=== PATIENT | female | born 1985 | race Caucasian/White ===

== ENCOUNTER 2017-07-04 14:51 | Emergency (ER) | payer OTHER ==
[2017-07-04 15:13] VITALS: BP 121/66; PULSE 76; RESP 16; TEMP 98.1; O2SAT 98
--- NOTE | 2017-07-04 16:12 | EDPHY ---
H & P Time Seen by Provider: 07/04/17 15:47 HPI/ROS: CHIEF COMPLAINT: Right foot injury HISTORY OF PRESENT ILLNESS: 31-year-old female presents to the emergency department with injury to her right foot. The patient was walking with socks on last night and somehow twisted her right foot. She complains of isolated pain in the foot. Denies pain in her ankle or any other injury. ROS: Denies numbness or tingling in her toes, pain right ankle or calf. Past Medical/Surgical History: Negative Social History: Single and lives in [place] Smoking Status: Never smoked Physical Exam: Bee on examination, the patient has obvious swelling and ecchymosis to the dorsal aspect of her right foot. Tenderness with palpation along the 5th metatarsal. The no redness. No abrasions or puncture wounds. No signs of cellulitis. No rotational deformities noted. The other toes do not appear injured. Nontender to palpate the right ankle. Her gait is not tested due to pain. Strong dorsalis pedis pulse on the dorsal aspect of her right foot. Constitutional: Initial Vital Signs Temperature (C) 36.7 C 07/04/17 15:05 Heart Rate 76 07/04/17 15:05 Respiratory Rate 16 07/04/17 15:05 Blood Pressure 121/66 H 07/04/17 15:05 O2 Sat (%) 98 07/04/17 15:05 O2 Delivery Mode Room Air Allergies/Adverse Reactions: No Known Allergies Allergy (Unverified 07/04/17 15:10) Home Medications: Medication Instructions Recorded NK [No Known Home Meds] 07/04/17 MDM/Departure - MDM Imaging: I viewed and interpreted images myself Procedures: The patient was placed in a Hernandez boot, examined post application in good placement with normal [employer]. She was also given crutches. ED Course/Re-evaluation: 31-year-old female presents with right foot injury. X-rays reveal right 5th metatarsal fracture. Patient was placed in a Hernandez boot and given orthopedic referral. - Depart Disposition: Home, Routine, Self-Care Clinical Impression: Nondisplaced fracture of fifth right metatarsal bone Qualifiers: Encounter type: initial encounter Fracture type: closed Qualified Code(s): S92.354A - Nondisplaced fracture of fifth metatarsal bone, right foot, initial encounter for closed fracture Condition: Good Instructions: Foot Fracture in Adults (ED) Additional Instructions: Ibuprofen 600 mg every 8 hr as needed for pain. Hernandez boot for comfort and support. Use crutches, nonweightbearing. Follow-up with on-call orthopedic surgeon or with your orthopedic surgeon when you return home to [place]. Referrals: Jossue Kauffman MD [Medical Doctor] - 5-7 days, call for appt. (Orthopedic surgeon on-call in [place])
== END 2017-07-04 16:27 | disposition home or self-care (01) ==
DX: S92.354A Nondisplaced fracture of fifth metatarsal bone, right foot, initial encounter for closed fracture (principal); X58.XXXA Exposure to other specified factors, initial encounter; Y99.8 Other external cause status; Y93.01 Activity, walking, marching and hiking
CPT/HCPCS: L4386